=== PATIENT | male | born 1945 | race Asian ===

== ENCOUNTER 2024-08-17 10:06 | Observation (INO) | payer MEDICARE, BC ==
--- NOTE | 2024-08-17 12:04 | ED ---
General Adult HPI - General Chief complaint: Upper Respiratory Infection Stated complaint: CHF Time Seen by Provider: 08/17/24 10:08 Source: patient, EMS Mode of arrival: EMS Limitations: no limitations - History of Present Illness Initial comments: 79-year-old male who presents to the emergency department as a transfer from [facility]. Patient went into the emergency department this morning for hemoptysis. Patient states that he has been intermittently coughing up bright red blood which started yesterday morning. He denies any chest pain or sh ortness of breath. He was tachypneic and has a history of COPD. No recent travel. He had a similar episode where he went to [place] and was admitted for anemia. Patient had upper and lower GI scopes that did not reveal anything. Patient is on Eliquis and has a history of coronary artery disease. Laboratory studies were conducted. Hemoglobin was 10 today. Hemoglobin on the was 11.2. Creatinine 2.7. BNP is 1610. CT was performed of the chest which demonstrates perihilar patchy groundglass opacities which can be seen in the setting of edema, pneumonia and inflammatory process. He was given a TXA breathing treatment. They tried to transfer the patient to [facility] however they were closed to transfers. He lives in [place] and therefore was requesting our facility. Patient arrives and states he has had no further episodes of the hemoptysis. No leg swelling. Denies abdominal pain. Denies vomiting any blood. No changes in his bowel movements. No other alleviating, precipitating or modifying factors - Related Data Allergies Allergy/AdvReac Type Severity Reaction Status Date / Time No Known Allergies Allergy Verified 08/17/24 11:24 Review of Systems ROS Statement: Those systems with pertinent positive or pertinent negative responses have been documented in the HPI. ROS Other: All systems not noted in ROS Statement are negative. Past Medical History Past Medical History: Coronary Artery Disease (CAD), Diabetes Mellitus, Hyperlipidemia, Hypertension Additional Past Medical History / Comment(s): Pacemaker, CHF, COPD History of Any Multi-Drug Resistant Organisms: None Reported Additional Past Surgical History / Comment(s): CABG 1996, Pacemaker placment 2016, Aortic Valve 2020 Past Psychological History: No Psychological Hx Reported Smoking Status: Never smoker Past Alcohol Use History: None Reported Past Drug Use History: None Reported General Exam Limitations: no limitations Course Vital Signs 08/17/24 08/17/24 10:10 10:16 Temperature 97.7 F Pulse Rate 70 Respiratory 18 20 Rate Blood Pressure 153/79 O2 Sat by Pulse 96 Oximetry Disposition Clinical Impression: Hemoptysis Disposition: ADMITTED IP TO THIS HOSP Condition: Stable Is patient prescribed a controlled substance at d/c from ED?: No Referrals: Nonstaff,Physician [Primary Care Provider] - 1-2 days Time of Disposition: 12:41 Decision to Admit Reason: Admit from EC Decision Date: 08/17/24 Decision Time: 12:41
[2024-08-17] MEDS ORDERED: NALOXONE 0.4 MG/ML 1 ML VIAL IV PRN (12:41)
--- NOTE | 2024-08-17 13:11 | P.HPIM ---
History of Present Illness This is a pleasant 79 years old male with past medical history of multiple medical problems as below. Patient was sent from [facility] at the time for hemoptysis. Patient information was obtained with the help of the at bedside. He has been coughing up blood last Wednesday couple times and then earlier this morning so he decided to come to the hospital. 2 weeks ago also he had similar episode of hemoptysis. He denies chest pain or dyspnea. No abdominal pain vomiting or diarrhea. No urinary complaint. No headache dizziness weakness numbness. 2 weeks ago also he started having lower back pain radiating to the left leg which makes him difficult for him to walk because of the pain. He denies smoking alcohol or illicit drugs Patient and states that also he is on Eliquis. They do not know why he was on Eliquis this was started about 1 year ago at that time he was in 6 hospitals. Patient also has peripheral artery disease which might help him for that. Patient is hemodynamically stable and is afebrile No labs done in this hospital so far. Labs checked from [facility] at the thump WBC 4.0, hemoglobin 10, platelet count 154. Glucose 151, BUN 61, creatinine 2.7 Calcium 8.6 sodium 142, potassium 4.3. Chloride 105. Albumin 3.2. AST 14 ALT 17. Bilirubin 0.3. proBNP 1610. CT of the chest done without contrast showing 1. Minimally perihilar patchy groundglass opacity which are nonspecific and can be seen in the setting of edema and pneumonia and inflammatory process 2. Central airway are patent 3. Heart size is enlarged. 4. Status post median sternotomy and CABG 5. The aorta is diffusely atherosclerotic and normal in caliber 6. No pleural effusion or pneumothorax 7. Cholelithiasis 8. Sternotomy wires are intact 9. No acute osseous abnormality Patient was admitted with ardiology and pulmonary team consult Review of Systems Review of systems CONSTITUTIONAL: No fever, no malaise, no fatigue. HEENT: No recent visual problems or hearing problems. Denied any sore throat. CARDIOVASCULAR: No orthopnea, PND, no palpitations, no syncope. PULMONARY: No shortness of breath, no cough, no hemoptysis. GASTROINTESTINAL: No diarrhea, no nausea, no vomiting, no abdominal pain. Normoactive bowel sounds. NEUROLOGICAL: No headaches, no weakness, no numbness. HEMATOLOGICAL: Denies any bleeding or petechiae. GENITOURINARY: Denies any burning micturition, frequency, or urgency. MUSCULOSKELETAL/RHEUMATOLOGICAL: Denies any joint pain, swelling, or any muscle pain. ENDOCRINE: Denies any polyuria or polydipsia. Past Medical History Past Medical History: Coronary Artery Disease (CAD), Diabetes Mellitus, Hype rlipidemia, Hypertension Additional Past Medical History / Comment(s): Pacemaker, CHF, COPD History of Any Multi-Drug Resistant Organisms: None Reported Additional Past Surgical History / Comment(s): CABG 1996, Pacemaker placment 2016, Aortic Valve 2020 Past Psychological History: No Psychological Hx Reported Smoking Status: Never smoker Past Alcohol Use History: None Reported Past Drug Use History: None Reported Medications and Allergies Home Medications Medication Instructions Recorded Confirmed Type Albuterol Sulfate [Albuterol 2 puff INHALATION RT-Q6H PRN 08/17/24 08/17/24 History Sulfate Hfa] Apixaban [Eliquis] 5 mg PO BID 08/17/24 08/17/24 History Ascorbic Acid [Vitamin C] 500 mg PO DAILY 08/17/24 08/17/24 History Atorvastatin [Lipitor] 80 mg PO HS 08/17/24 08/17/24 History Cholecalciferol [Vitamin D3 (25 25 mcg PO DAILY 08/17/24 08/17/24 History Mcg = 1000 Iu)] DULoxetine HCL [Cymbalta] 20 mg PO BID 08/17/24 08/17/24 History Divalproex [Depakote] 250 mg PO BID 08/17/24 08/17/24 History Empagliflozin [Jardiance] 10 mg PO DAILY 08/17/24 08/17/24 History Evolocumab [Repatha Sureclick] 140 mg SQ Q14D 08/17/24 08/17/24 History Fenofibrate [Lofibra] 160 mg PO DAILY 08/17/24 08/17/24 History Fluticasone/Umeclidin/Vilanter 1 puff INHALATION RT-DAILY 08/17/24 08/17/24 History [Trelegy Ellipta 100-62.5-25] Folate 1,333 Mcg Dfe 1 tab PO DAILY 08/17/24 08/17/24 History Furosemide [Lasix] 20 mg PO DAILY PRN 08/17/24 08/17/24 History Furosemide [Lasix] 80 mg PO DAILY 08/17/24 08/17/24 History Gabapentin [Neurontin] 300 mg PO BID 08/17/24 08/17/24 History HYDROcodone/APAP 7.5-325MG [[place] 1 tab PO BID PRN 08/17/24 08/17/24 History 7.5-325] HYDROcodone/APAP 7.5-325MG [[place] 1 tab PO HS 08/17/24 08/17/24 History 7.5-325] Insulin Glargine,Hum.rec.anlog 40 unit SQ DAILY 08/17/24 08/17/24 History [Basaglar Kwikpen U-100] Isosorbide Mononitrate ER [Imdur] 30 mg PO TID 08/17/24 08/17/24 History Potassium Chloride ER [K-Dur 20] 20 meq PO DAILY 08/17/24 08/17/24 History QUEtiapine [SEROquel] 25 mg PO HS 08/17/24 08/17/24 History Sennosides [Senokot] 8.6 mg PO DAILY 08/17/24 08/17/24 History Spironolactone [Aldactone] 12.5 mg PO DAILY 08/17/24 08/17/24 History Tamsulosin [Flomax] 0.8 mg PO HS 08/17/24 08/17/24 History Vitamin B Complex 1 cap PO DAILY 08/17/24 08/17/24 History Zinc Gluconate [Zinc] 50 mg PO DAILY 08/17/24 08/17/24 History Zolpidem [Ambien] 10 mg PO HS 08/17/24 08/17/24 History amLODIPine [Norvasc] 10 mg PO HS 08/17/24 08/17/24 History buPROPion XL [Wellbutrin XL] 300 mg PO DAILY 08/17/24 08/17/24 History carvediloL [Coreg] 25 mg PO BID 08/17/24 08/17/24 History hydrALAZINE HCL [Apresoline] 100 mg PO TID 08/17/24 08/17/24 History methocarbamoL [Robaxin] 500 mg PO BID 08/17/24 08/17/24 History Allergies Allergy/AdvReac Type Severity Reaction Status Date / Time No Known Allergies Allergy Verified 08/17/24 11:24 Physical Exam Vitals: Vital Signs Temp Pulse Resp BP Pulse Ox 08/17/24 12:51 69 18 145/76 96 08/17/24 11:16 70 20 125/76 96 08/17/24 10:16 20 08/17/24 10:10 97.7 F 70 18 153/79 96 Intake and Output 08/16/24 08/17/24 08/17/24 22:59 06:59 14:59 Other: Weight 90.718 kg GENERAL: The patient is alert and oriented x3, not in any acute distress. Well developed, well nourished. HEENT: Pupils are round and equally reacting to light. EOMI. No scleral icterus. No conjunctival pallor. Normocephalic, atraumatic. No pharyngeal erythema. No thyromegaly. CARDIOVASCULAR: S1 and S2 present. No murmurs, rubs, or gallops. PULMONARY: Chest is clear to auscultation, no wheezing , no crackles. ABDOMEN: Soft, nontender, nondistended, normoactive bowel sounds. No palpable organomegaly. MUSCULOSKELETAL: No joint swelling or deformity. EXTREMITIES: No cyanosis, clubbing, or pedal edema. NEUROLOGICAL: Gross neurological examination did not reveal any focal deficits. SKIN: No rashes. no petechiae. Assessment and Plan Assessment: Hemoptysis Acute blood loss anemia Lower back pain radiating to the left leg Hypertension Hyperlipidemia Coronary artery disease Obesity with BMI of 33. Peripheral artery disease Kidney stone Plan: Check hemoglobin and monitored Pulmonary team consult Hold Eliquis Lumbar sacral x-ray Lidocaine patch Labs and medication were reviewed.. Continue same treatment. Continue with symptomatic treatment. Resume home medication. Monitor labs and vitals. DVT and GI prophylaxis. Further recommendations as per clinical course of the patient DVT prophylaxis: Mechanical in view of bleeding and hemoptysis GI Prophylaxis: Pepcid PT/OT: Pending Prognosis is guarded
--- NOTE | 2024-08-17 13:37 | XR ---
EXAMINATION TYPE: XR lumbar spine 2 or 3V DATE OF EXAM: 08/17/2024 CLINICAL HISTORY: pain TECHNIQUE: Three views of the lumbar spine are submitted. COMPARISON: None. FINDINGS: There are 5 lumbar type vertebral bodies identified. The lumbar spine shows satisfactory alignment w ithout evidence of acute fracture or dislocation. Vertebral body heights are within normal limits. Mi nimal multilevel anterolateral pneumatosis. Disc spaces are within normal limits. The overlying sof t tissue appears unremarkable. Severe atherosclerotic calcification of the aorta. IMPRESSION: 1. No acute fracture or dislocation is seen in the lumbar spine. 2. Minimal degenerative disc disease. [facility], , 08/17/2024 1:35 PM
[2024-08-17] MEDS ORDERED: IPRATROPIUM-ALBUTEROL 3 ML NEB INHALATION PRN (15:01)
[2024-08-17 15:38] LABS: Basophils % (A) 0 %; Eosinophils # (A) 0.2 k/uL (0-0.7); Eosinophils % (A) 5 %; HCT 35.3 % (39.0-53.0); HGB 11.3 gm/dL (13.0-17.5); Hypochromasia Moderate; Lymphocytes # (A) 0.8 k/uL (1.0-4.8); Lymphocytes % (A) 15 %; MCH 28.8 pg (25.0-35.0); MCV 89.8 fL (80.0-100.0); Mean Platelet Volume 8.6; Monocytes # (A) 0.3 k/uL (0-1.0); Monocytes % (A) 7 %; Neutrophils # (A) 3.6 k/uL (1.3-7.7); Neutrophils % (A) 71 %; Platelet Count 176 k/uL (150-450); RBC 3.93 m/uL (4.30-5.90); RDW 15.7 % (11.5-15.5)
[2024-08-17] MEDS: IPRATROPIUM-ALBUTEROL 3 ML NEB INHALATION SCH (16:03)
--- NOTE | 2024-08-17 16:23 | P.CNPUL ---
History of Present Illness Consult date: 08/17/24 Requesting physician: Mary Villalobos Reason for consult: other (Hemoptysis) Chief complaint: Coughing up blood History of present illness: This is a 79-year-old male patient with a known history of coronary artery disease with previous coronary artery bypass grafting, sick sinus syndrome status post pacemaker implantation, atrial fibrillation anticoagulated with Eliquis, diabetes mellitus, hyperlipidemia, hypertension, aortic valve replacement, non-smoker. He does have a history of COPD. He is a former smoker. He is maintained on Trelegy and albuterol in the outpatient setting. He also has obstructive sleep apnea maintained on CPAP. He presented here to the emergency room early this morning from [facility] for complaints of hemoptysis. He states 2 days ago he had coughed up some blood about a dime sized amount possibly the size of a nickel he had 1 dark clot and also some brig ht red blood. CT scan of the chest there revealed minimal perihilar groundglass opacities. He further hemoptysis since being here today. He is seen today in consultation on the regular medical floor. He is awake and alert in no acute distress. His Eliquis remains on hold. He is maintaining good O2 saturations in the 90s on room air. He is been afebrile. Hemodynamically stable. White count 5.0. Hemoglobin 11.3. Platelets 176. Review of Systems REVIEW OF SYSTEMS: CONSTITUTIONAL: Denies any recent significant weight loss or weight gain. EYES: Denies change in vision. EARS, NOSE, MOUTH, THROAT: Denies headaches, denies sore throat. CARDIOVASCULAR: Denies chest pain, palpitations or syncopal episodes. RESPIRATORY: Positive for hemoptysis. Denies shortness of breath, cough, congestion. GASTROINTESTINAL: Denies change in appetite, denies abdominal pain GENITOURINARY: Denies hematuria, denies infections. MUSKULOSKELETAL: Denies pain, denies swelling. INTEGUMENTARY: Denies rash, denies eczema. NEUROLOGICAL: Denies recent memory loss, no recent seizure activity. PSYCHIATRIC: Denies anxiety, denies depression. HEMATOLOGIC/LYMPHATIC: Denies anemia, denies enlarged lymph nodes. Past Medical History Past Medical History: Coronary Artery Disease (CAD), Diabetes Mellitus, Hyperlipidemia, Hypertension Additional Past Medical History / Comment(s): Pacemaker, CHF, COPD History of Any Multi-Drug Resistant Organisms: None Reported Additional Past Surgical History / Comment(s): CABG 1996, Pacemaker placment 2016, Aortic Valve 2020 Past Psychological History: No Psychological Hx Reported Smoking Status: Never smoker Past Alcohol Use History: None Reported Past Drug Use History: None Reported Medications and Allergies Home Medications Medication Instructions Recorded Confirmed Type Albuterol Sulfate [Albuterol 2 puff INHALATION RT-Q6H PRN 08/17/24 08/17/24 History Sulfate Hfa] Apixaban [Eliquis] 5 mg PO BID 08/17/24 08/17/24 History Ascorbic Acid [Vitamin C] 500 mg PO DAILY 08/17/24 08/17/24 History Atorvastatin [Lipitor] 80 mg PO HS 08/17/24 08/17/24 History Cholecalciferol [Vitamin D3 (25 25 mcg PO DAILY 08/17/24 08/17/24 History Mcg = 1000 Iu)] DULoxetine HCL [Cymbalta] 20 mg PO BID 08/17/24 08/17/24 History Divalproex [Depakote] 250 mg PO BID 08/17/24 08/17/24 History Empagliflozin [Jardiance] 10 mg PO DAILY 08/17/24 08/17/24 History Evolocumab [Repatha Sureclick] 140 mg SQ Q14D 08/17/24 08/17/24 History Fenofibrate [Lofibra] 160 mg PO DAILY 08/17/24 08/17/24 History Fluticasone/Umeclidin/Vilanter 1 puff INHALATION RT-DAILY 08/17/24 08/17/24 History [Trelegy Ellipta 100-62.5-25] Folate 1,333 Mcg Dfe 1 tab PO DAILY 08/17/24 08/17/24 History Furosemide [Lasix] 20 mg PO DAILY PRN 08/17/24 08/17/24 History Furosemide [Lasix] 80 mg PO DAILY 08/17/24 08/17/24 History Gabapentin [Neurontin] 300 mg PO BID 08/17/24 08/17/24 History HYDROcodone/APAP 7.5-325MG [[place] 1 tab PO BID PRN 08/17/24 08/17/24 History 7.5-325] HYDROcodone/APAP 7.5-325MG [[place] 1 tab PO HS 08/17/24 08/17/24 History 7.5-325] Insulin Glargine,Hum.rec.anlog 40 unit SQ DAILY 08/17/24 08/17/24 History [Basaglhilary Samuelspen U-100] Isosorbide Mononitrate ER [Imdur] 30 mg PO TID 08/17/24 08/17/24 History Potassium Chloride ER [K-Dur 20] 20 meq PO DAILY 08/17/24 08/17/24 History QUEtiapine [SEROquel] 25 mg PO HS 08/17/24 08/17/24 History Sennosides [Senokot] 8.6 mg PO DAILY 08/17/24 08/17/24 History Spironolactone [Aldactone] 12.5 mg PO DAILY 08/17/24 08/17/24 History Tamsulosin [Flomax] 0.8 mg PO HS 08/17/24 08/17/24 History Vitamin B Complex 1 cap PO DAILY 08/17/24 08/17/24 History Zinc Gluconate [Zinc] 50 mg PO DAILY 08/17/24 08/17/24 History Zolpidem [Ambien] 10 mg PO HS 08/17/24 08/17/24 History amLODIPine [Norvasc] 10 mg PO HS 08/17/24 08/17/24 History buPROPion XL [Wellbutrin XL] 300 mg PO DAILY 08/17/24 08/17/24 History carvediloL [Coreg] 25 mg PO BID 08/17/24 08/17/24 History hydrALAZINE HCL [Apresoline] 100 mg PO TID 08/17/24 08/17/24 History methocarbamoL [Robaxin] 500 mg PO BID 08/17/24 08/17/24 History Allergies Allergy/AdvReac Type Severity Reaction Status Date / Time No Known Allergies Allergy Verified 08/17/24 11:24 Physical Exam Vitals: Vital Signs Temp Pulse Pulse Resp BP BP Pulse Ox 08/17/24 16:02 68 08/17/24 15:56 70 08/17/24 14:58 97.8 F 70 16 183/84 99 08/17/24 14:31 97.9 F 70 17 171/73 96 08/17/24 12:51 69 18 145/76 96 08/17/24 11:16 70 20 125/76 96 08/17/24 10:16 20 08/17/24 10:10 97.7 F 70 18 153/79 96 Intake and Output 08/17/24 08/17/24 08/17/24 06:59 14:59 22:59 Other: Weight 90.718 kg GENERAL EXAM: Alert, active, pleasant 79-year-old male, on room air, comfortable in no apparent distress. HEAD: Normocephalic. EYES: Normal reaction of pupils, equal size. NOSE: Clear with pink turbinates. THROAT: No erythema or exudates. NECK: No masses, no JVD. CHEST: No chest wall deformity. LUNGS: Equal air entry with no crackles, wheeze, rhonchi or dullness. CVS: S1 and S2 normal with no audible murmur, regular rhythm. ABDOMEN: No hepatosplenomegaly, normal bowel sounds, no guarding or rigidity. SPINE: No scoliosis or deformity SKIN: No rashes CENTRAL NERVOUS SYSTEM: No focal deficits, tone is normal in all 4 extremities. EXTREMITIES: There is no peripheral edema. No clubbing, no cyanosis. Peripheral pulses are intact. Results - Laboratory Findings CBC and BMP: 08/17/24 15:26 Abnormal lab findings: Abnormal Labs 08/17/24 15:26 RBC 3.93 L Hgb 11.3 L Hct 35.3 L RDW 15.7 H Lymphocytes # 0.8 L - Diagnostic Findings CT scan - chest: image reviewed Assessment and Plan Assessment: Hemoptysis of unclear etiology History of chronic obstructive pulmonary disease Former smoker Obstructive sleep apnea maintained on CPAP History of atrial fibrillation anticoagulated with Eliquis Coronary disease with previous coronary bypass surgery History of pacemaker implantation History of congestive heart failure History of hypertension Hyperlipidemia History of anxiety/depression History of seizures Plan: The patient was seen and evaluated Imaging, labs and medications reviewed Remains stable and on room air No further hemoptysis today Will plan for bronchoscopy with BAL tomorrow Initiated DuoNeb inhalations Added Symbicort Continue to hold Eliquis We will continue to follow and make further recommendations based on his clinical status I have personally seen and examined the patient, performed the documentation and the assessment and plan as written. Number of minutes spent on the visit: 20 Dictation was produced using Mashed Pixelation software. Please excuse any grammatical, word or spelling errors. Time with Patient: Greater than 30
[2024-08-17 17:06] LABS: Glucose,Whole Blood 164 mg/dL (70-110)
[2024-08-17] MEDS: LIDOCAINE 4% PATCH TOPICAL SCH (17:43)
[2024-08-17] MEDS: SYMBICORT 160-4.5 MCG INHALER INHALATION SCH (20:16)
[2024-08-17 20:20] LABS: Glucose,Whole Blood 208 mg/dL (70-110)
[2024-08-17] MEDS ORDERED: ALBUTEROL NEBULIZED 2.5 MG/3 ML INHALATION PRN (20:55)
[2024-08-17] MEDS ORDERED: FUROSEMIDE 20 MG TAB PO PRN (22:00)
[2024-08-17] MEDS: GABAPENTIN 300 MG CAP PO SCH (23:06)
[2024-08-17] MEDS: hydrALAZINE HCL 50 MG TAB PO SCH (23:06)
[2024-08-17] MEDS: amLODIPine 10 MG TAB PO SCH (23:06)
[2024-08-17] MEDS: ZOLPIDEM 5 MG TAB PO SCH (23:06)
[2024-08-17] MEDS: TAMSULOSIN 0.4 MG CAP.ER.24H PO SCH (23:06)
[2024-08-17] MEDS: ATORVASTATIN 80 MG TAB PO SCH (23:06)
[2024-08-17] MEDS: QUEtiapine 25 MG TAB PO SCH (23:06)
[2024-08-17] MEDS: methocarbamoL 500 MG TAB PO SCH (23:06)
[2024-08-17] MEDS: FAMOTIDINE 20 MG/2 ML VIAL IV SCH (23:08)
[2024-08-17] MEDS: HYDROcodone/APAP 7.5-325MG 1 EACH TAB PO PRN (23:09)
[2024-08-17] MEDS: DIVALPROEX 250 MG TABLET.DR PO SCH (23:10)
[2024-08-17] MEDS: ISOSORBIDE MONONITRATE ER 30 MG TAB.ER.24H PO SCH (23:10)
[2024-08-17] MEDS: DULoxetine HCL 20 MG CAPSULE.DR PO SCH (23:10)
[2024-08-17] MEDS: carvediloL 12.5 MG TAB PO SCH (23:10)
[2024-08-17 23:46] LABS: Glucose,Whole Blood 196 mg/dL (70-110)
[2024-08-18 06:10] LABS: Glucose,Whole Blood 120 mg/dL (70-110)
[2024-08-18] MEDS ORDERED: SYMBICORT 160-4.5 MCG INHALER INHALATION SCH (08:00)
[2024-08-18 08:15] LABS: Basophils # (A) 0.04 X 10*3/uL (0.00-0.10); Basophils % (A) 1.1 %; Eosinophils # (A) 0.22 X 10*3/uL (0.04-0.35); Eosinophils % (A) 5.8 %; HCT 34.4 % (39.6-50.0); HGB 10.8 g/dL (13.0-17.0); Lymphocytes % (A) 18.5 %; MCH 28.3 pg (27.0-32.0); MCHC 31.4 g/dL (32.0-37.0); MCV 90.3 FL (80.0-97.0); Mean Platelet Volume 10.2 FL (9.5-12.2); Monocytes # (A) 0.44 X 10*3/uL (0.20-1.00); Monocytes % (A) 11.6 %; NRBC Per 100 WBC 0 X 10*3/uL (0.00-0.01); Neutrophils # (A) 2.36 X 10*3/uL (1.80-7.70); Neutrophils % (A) 62.5 %; Platelet Count 169 X 10*3/uL (140-440); RBC 3.81 X 10*6/uL (4.40-5.60); RDW 16.2 % (11.5-14.5); WBC 3.78 X 10*3/uL (4.50-10.00)
[2024-08-18 08:19] LABS: ALT 13 U/L (10-49); AST 17 U/L (14-35); Albumin 3.8 g/dL (3.8-4.9); Albumin/Globulin Ratio 1.41 Ratio (1.60-3.17); Alkaline Phosphatase 25 U/L (41-126); BUN/Creat Ratio 24.21 Ratio (12.00-20.00); Blood Urea Nitrogen 58.1 mg/dL (9.0-27.0); Calcium 9.2 mg/dL (8.7-10.3); Carbon Dioxide 27.3 mmol/L (21.6-31.8); Chloride 105 mmol/L (96-109); Globulin 2.7 g/dL (1.6-3.3); Glucose 129 mg/dL (70-110); Potassium 3.8 mmol/L (3.5-5.5); Sodium 143 mmol/L (135-145); Total Bilirubin 0.3 mg/dL (0.3-1.2); Total Protein 6.5 g/dL (6.2-8.2)
[2024-08-18] MEDS ORDERED: PROPOFOL 10 MG/ML 20 ML VIAL IV ONE (09:09)
[2024-08-18] MEDS ORDERED: LIDOCAINE 1% INJ 10MG/ML (20 ML MDV) ONE (09:09)
[2024-08-18] MEDS: LACTATED RINGERS 500 ML IV ONE ×2 (09:10→09:29)
[2024-08-18] MEDS: LIDOCAINE 2% INJ 20 MG/ML INTRATRACH ONE (09:27)
--- NOTE | 2024-08-18 09:54 | P.CRDCN ---
History of Present Illness History of present illness: HISTORY OF PRESENT ILLNESS: This is a 79-year-old male with a past medical history significant for coronary artery disease with previous CABG x 2, permanent pacemaker implantation, atrial fibrillation, diabetes, hypertension, and hyperlipidemia. Patient follows with a sign writer letterer or painter in [place]. We have been asked to see the patient in consultation for CHF. Patient examined at the bedside. Patient presented to the hospital with a chief complaint of hemoptysis. The patient is prescribed Eliquis on an outpatient basis for history of atrial fibrillation. The patient denies any chest pain or pressure. He denies any shortness of breath. Patient is scheduled to undergo bronchoscopy today with pulmonary medicine. DIAGNOSTICS: - EKG reveals ventricular paced rhythm. - Laboratory data: WBC 3.78. Hemoglobin 10.8. Platelet count 169. Sodium 143. Potassium 3.8. BUN 58. Creatinine 2.4. - Current home cardiac medications include Lasix 80 mg daily, carvedilol 25 mg twice a day, Imdur 30 mg 3 times daily, amlodipine 10 mg daily, Aldactone 12.5 mg daily, Jardiance 10 mg daily, Lipitor 80 mg daily, Eliquis 5 mg twice a day, hydralazine 100 mg 3 times daily, and Repatha 140 mg subcu every 14 days. -No previous echocardiogram, stress test, or cardiac catheterization available in EMR for review REVIEW OF SYSTEMS: At the time of my exam: CONSTITUTIONAL: Denies fever or chills. HEENT: Denies blurred vision, vision changes, or eye pain. Denies hemoptysis CARDIOVASCULAR: Denies chest pain. Denies orthopnea. Denies PND. Denies palpitations RESPIRATORY: Denies shortness of breath. GASTROINTESTINAL: Denies abdominal pain. Denies nausea or vomiting. HEMATOLOGIC: Denies bleeding disorders. GENITOURINARY: Denies any blood in urine. SKIN: Denies pruitis. Denies rash. PHYSICAL EXAM: VITAL SIGNS: Reviewed. GENERAL: Well-developed in no acute distress. HEENT: Head is normocephalic. Pupils are equal, round. Sclerae anicteric. Mucous membranes of the mouth are moist. Neck supple. No JVD or thyromegaly LUNGS: Respirations even and unlabored. Lungs essentially clear to auscultation bilaterally. HEART: Regular rate and rhythm. S1 and S2 heard. ABDOMEN: Soft. Nondistended. Nontender. EXTREMITIES: Normal range of motion. No clubbing or cyanosis. Peripheral pulses intact. No lower extremity edema NEUROLOGIC: Awake and alert. Oriented x 3. ASSESSMENT: Hemoptysis Coronary artery disease with previous CABG x 2 per History of permanent pacemaker implantation Paroxysmal atrial fibrillation on Eliquis outpatient Chronic heart failure, currently euvolemic, type unknown, echo pending Chronic kidney disease Hypertension Hyperlipidemia Diabetes PLAN: Obtain 2D echo to assess cardiac structure and function Resume home cardiac medications Hold Eliquis due to hemoptysis Patient is currently euvolemic upon examination with no evidence of acute heart failure Patient scheduled to undergo bronchoscopy today with pulmonary medicine Further recommendations pending patient course Patient to follow-up postdischarge with his primary sign writer letterer or painter in [place] Nurse practitioner note has been reviewed by physician. Signing provider agrees with the documented findings, assessment, and plan of care documented by [employer] as a scribe. Past Medical History Past Medical History: Coronary Artery Disease (CAD), Diabetes Mellitus, Hyperlipidemia, Hypertension Additional Past Medical History / Comment(s): Pacemaker, CHF, COPD History of Any Multi-Drug Resistant Organisms: None Reported Additional Past Surgical History / Comment(s): CABG 1996, Pacemaker placment 2016, Aortic Valve 2020 Past Psychological History: No Psychological Hx Reported Smoking Status: Never smoker Past Alcohol Use History: None Reported Past Drug Use History: None Reported Medications and Allergies Home Medications Medication Instructions Recorded Confirmed Type Albuterol Sulfate [Albuterol 2 puff INHALATION RT-Q6H PRN 08/17/24 08/17/24 History Sulfate Hfa] Apixaban [Eliquis] 5 mg PO BID 08/17/24 08/17/24 History Ascorbic Acid [Vitamin C] 500 mg PO DAILY 08/17/24 08/17/24 History Atorvastatin [Lipitor] 80 mg PO HS 08/17/24 08/17/24 History Cholecalciferol [Vitamin D3 (25 25 mcg PO DAILY 08/17/24 08/17/24 History Mcg = 1000 Iu)] DULoxetine HCL [Cymbalta] 20 mg PO BID 08/17/24 08/17/24 History Divalproex [Depakote] 250 mg PO BID 08/17/24 08/17/24 History Empagliflozin [Jardiance] 10 mg PO DAILY 08/17/24 08/17/24 History Evolocumab [Repatha Sureclick] 140 mg SQ Q14D 08/17/24 08/17/24 History Fenofibrate [Lofibra] 160 mg PO DAILY 08/17/24 08/17/24 History Fluticasone/Umeclidin/Vilanter 1 puff INHALATION RT-DAILY 08/17/24 08/17/24 History [Trelegy Ellipta 100-62.5-25] Folate 1,333 Mcg Dfe 1 tab PO DAILY 08/17/24 08/17/24 History Furosemide [Lasix] 20 mg PO DAILY PRN 08/17/24 08/17/24 History Furosemide [Lasix] 80 mg PO DAILY 08/17/24 08/17/24 History Gabapentin [Neurontin] 300 mg PO BID 08/17/24 08/17/24 History HYDROcodone/APAP 7.5-325MG [Purdum 1 tab PO BID PRN 08/17/24 08/17/24 History 7.5-325] HYDROcodone/APAP 7.5-325MG [Purdum 1 tab PO HS 08/17/24 08/17/24 History 7.5-325] Insulin Glargine,Hum.rec.anlog 40 unit SQ DAILY 08/17/24 08/17/24 History [Basaglar Kwikpen U-100] Isosorbide Mononitrate ER [Imdur] 30 mg PO TID 08/17/24 08/17/24 History Potassium Chloride ER [K-Dur 20] 20 meq PO DAILY 08/17/24 08/17/24 History QUEtiapine [SEROquel] 25 mg PO HS 08/17/24 08/17/24 History Sennosides [Senokot] 8.6 mg PO DAILY 08/17/24 08/17/24 History Spironolactone [Aldactone] 12.5 mg PO DAILY 08/17/24 08/17/24 History Tamsulosin [Flomax] 0.8 mg PO HS 08/17/24 08/17/24 History Vitamin B Complex 1 cap PO DAILY 08/17/24 08/17/24 History Zinc Gluconate [Zinc] 50 mg PO DAILY 08/17/24 08/17/24 History Zolpidem [Ambien] 10 mg PO HS 08/17/24 08/17/24 History amLODIPine [Norvasc] 10 mg PO HS 08/17/24 08/17/24 History buPROPion XL [Wellbutrin XL] 300 mg PO DAILY 08/17/24 08/17/24 History carvediloL [Coreg] 25 mg PO BID 08/17/24 08/17/24 History hydrALAZINE HCL [Apresoline] 100 mg PO TID 08/17/24 08/17/24 History methocarbamoL [Robaxin] 500 mg PO BID 08/17/24 08/17/24 History Allergies Allergy/AdvReac Type Severity Reaction Status Date / Time No Known Allergies Allergy Verified 08/17/24 11:24 Physical Exam Vitals: Vital Signs Temp Pulse Pulse Resp BP BP Pulse Ox 08/18/24 08:06 70 08/18/24 07:58 64 08/18/24 07:00 98.7 F 70 16 171/81 96 08/18/24 01:40 98.1 F 70 17 176/71 95 08/17/24 20:27 72 08/17/24 20:17 70 08/17/24 19:20 99.0 F 74 17 162/51 99 08/17/24 16:02 68 08/17/24 15:56 70 08/17/24 14:58 97.8 F 70 16 183/84 99 08/17/24 14:31 97.9 F 70 17 171/73 96 08/17/24 12:51 69 18 145/76 96 08/17/24 11:16 70 20 125/76 96 08/17/24 10:16 20 08/17/24 10:10 97.7 F 70 18 153/79 96 Intake and Output 08/17/24 08/18/24 08/18/24 22:59 06:59 14:59 Intake Total 300 Balance 300 Intake: IV 300 Other: # Voids 1 2 Results 08/18/24 05:23 08/18/24 05:23 Cardiac Enzymes 08/18/24 Range/Units 05:23 AST 17 (14-35) U/L CBC 08/17/24 08/18/24 Range/Units 15:26 05:23 WBC 5.0 3.78 L (3.8-10.6) k/uL RBC 3.93 L 3.81 L (4.30-5.90) m/uL Hgb 11.3 L 10.8 L (13.0-17.5) gm/dL Hct 35.3 L 34.4 L (39.0-53.0) % Plt Count 176 169 (150-450) k/uL Comprehensive Metabolic Panel 08/18/24 Range/Units 05:23 Sodium 143 (135-145) mmol/L Potassium 3.8 (3.5-5.5) mmol/L Chloride 105 (96-109) mmol/L Carbon Dioxide 27.3 (21.6-31.8) mmol/L BUN 58.1 H (9.0-27.0) mg/dL Creatinine 2.4 H (0.6-1.5) mg/dL Glucose 129 H (70-110) mg/dL Calcium 9.2 (8.7-10.3) mg/dL AST 17 (14-35) U/L ALT 13 (10-49) U/L Alkaline Phosphatase 25 L (41-126) U/L Total Protein 6.5 (6.2-8.2) g/dL Albumin 3.8 (3.8-4.9) g/dL Current Medications Generic Name Dose Route Start Last Admin Trade Name Freq PRN Reason Stop Dose Admin Hydrocodone Bitart/Acetaminophen 1 each 08/17/24 20:56 Hydrocodone/Apap 7.5-325mg 1 Each Tab PO BID PRN Pain Hydrocodone Bitart/Acetaminophen 1 each 08/17/24 22:15 08/17/24 23:09 Hydrocodone/Apap 7.5-325mg 1 Each Tab PO 1 each HS PRN Administration pain Albuterol Sulfate 2 mg 08/17/24 20:55 Albuterol Nebulized 2.5 Mg/3 Ml INHALATION RT-Q6H PRN Shortness Of Breath Albuterol/Ipratropium 3 ml 08/17/24 16:00 08/18/24 07:58 Ipratropium-Albuterol 3 Ml Neb INHALATION 3 ml RT-QID NIGEL Administration Albuterol/Ipratropium 3 ml 08/17/24 15:01 Ipratropium-Albuterol 3 Ml Neb INHALATION RT-Q2H PRN Shortness Of Breath Or Wheezing Amlodipine Besylate 10 mg 08/17/24 21:30 08/17/24 23:06 Amlodipine 10 Mg Tab PO 10 mg HS NIGEL Administration Amoxicillin/Clavulanate Potassium 1 each 08/18/24 09:30 Amoxic-Pot Clav 875-125mg 1 Each Tab PO 08/24/24 21:01 Q12HR [facility] Protocol Ascorbic Acid 500 mg 08/18/24 09:00 Ascorbic Acid 500 Mg Tab PO DAILY [facility] Atorvastatin Calcium 80 mg 08/17/24 21:30 08/17/24 23:06 Atorvastatin 80 Mg Tab PO 80 mg HS [facility] Administration Budesonide/Formoterol Fumarate 2 puff 08/17/24 20:00 08/18/24 07:58 Symbicort 160-4.5 Mcg Inhaler INHALATION 2 puff RT-BID [facility] Administration Bupropion HCl 300 mg 08/18/24 09:00 Bupropion Xl 300 Mg Tab.Er.24h PO DAILY [facility] Carvedilol 25 mg 08/17/24 22:00 08/17/24 23:10 Carvedilol 12.5 Mg Tab PO Not Given BID-W/MEALS [facility] Cholecalciferol 25 mcg 08/18/24 09:00 Cholecalciferol 25 Mcg (1000 Iu) Tablet PO DAILY [facility] Dapagliflozin 5 mg 08/18/24 09:00 Dapagliflozin Propanediol 5 Mg Tablet PO DAILY [facility] Divalproex Sodium 250 mg 08/17/24 21:30 08/17/24 23:10 Divalproex 250 Mg Tablet.Dr PO Not Given BID [facility] Duloxetine HCl 20 mg 08/17/24 21:00 08/17/24 23:10 Duloxetine Hcl 20 Mg Capsule.Dr PO Not Given BID [facility] Famotidine 20 mg 08/17/24 22:00 08/17/24 23:08 Famotidine 20 Mg/2 Ml Vial IV 20 mg Q12HR [facility] Administration Fenofibrate 160 mg 08/18/24 09:00 Fenofibrate 160 Mg Tab PO DAILY [facility] Folic Acid 1 mg 08/18/24 09:00 Folic Acid 1 Mg Tab PO DAILY [facility] Furosemide 80 mg 08/18/24 09:00 Furosemide 40 Mg Tab PO DAILY [facility] Furosemide 20 mg 08/17/24 22:00 Furosemide 20 Mg Tab PO DAILY PRN Edema Gabapentin 300 mg 08/17/24 21:30 08/17/24 23:06 Gabapentin 300 Mg Cap PO 300 mg BID [facility] Administration Hydralazine HCl 100 mg 08/17/24 22:00 08/17/24 23:06 Hydralazine Hcl 50 Mg Tab PO 100 mg TID [facility] Administration Insulin Glargine 40 unit 08/18/24 09:00 Insulin Glargine (Lantus) 100 Unit/Ml Syr SQ DAILY [facility] Isosorbide Mononitrate 30 mg 08/17/24 22:00 08/17/24 23:10 Isosorbide Mononitrate Er 30 Mg Tab.Er.24h PO Not Given TID [facility] Lidocaine 1 patch 08/17/24 13:30 08/17/24 17:43 Lidocaine 4% Patch TOPICAL 1 patch DAILY [facility] Administration Protocol Methocarbamol 500 mg 08/17/24 22:00 08/17/24 23:06 Methocarbamol 500 Mg Tab PO 500 mg BID [facility] Administration Multivit/Ca Carb/B Cmplx/FA/Prenat 1 each 08/18/24 09:00 Folic Acid-Vit B Complex-Vit C 1 Cap PO DAILY [facility] Naloxone HCl 0.2 mg 08/17/24 12:41 Naloxone 0.4 Mg/Ml 1 Ml Vial IV Q2M PRN Opioid Reversal Non-Formulary Medication 140 mg 08/24/24 09:00 Evolocumab [Repatha Sureclick] SQ Q14D [facility] Potassium Chloride 20 meq 08/18/24 09:00 Potassium Chloride Er 20 Meq Tab.Er PO DAILY [facility] Prednisone 40 mg 08/18/24 09:36 Prednisone 20 Mg Tab PO DAILY [facility] Quetiapine Fumarate 25 mg 08/17/24 22:00 08/17/24 23:06 Quetiapine 25 Mg Tab PO 25 mg HS [facility] Administration Senna 8.6 mg 08/18/24 09:00 Sennosides 8.6 Mg Tab PO DAILY [facility] Spironolactone 12.5 mg 08/18/24 09:00 Spironolactone 25 Mg Tab PO DAILY [facility] Tamsulosin HCl 0.8 mg 08/17/24 22:00 08/17/24 23:06 Tamsulosin 0.4 Mg Cap.Er.24h PO 0.8 mg HS [facility] Administration Zinc Sulfate 220 mg 08/18/24 09:00 Zinc Sulfate 220 Mg Cap PO DAILY [facility] Zolpidem Tartrate 10 mg 08/17/24 22:30 08/17/24 23:06 Zolpidem 5 Mg Tab PO 10 mg HS [facility] Administration Intake and Output 0308/18/24 08/18/24 22:59 06:59 14:59 Intake Total 300 Balance 300 Intake: IV 300 Other: # Voids 1 2 08/18/24 05:23 08/18/24 05:23
[2024-08-18] MEDS: buPROPion XL 300 MG TAB.ER.24H PO SCH (10:48)
[2024-08-18] MEDS: FUROSEMIDE 40 MG TAB PO SCH (10:49)
[2024-08-18] MEDS: SPIRONOLACTONE 25 MG TAB PO SCH (10:50)
--- NOTE | 2024-08-18 11:18 | P.PN ---
Subjective Progress Note Date: 08/18/24 This is a 79-year-old male patient with a known history of coronary artery disease with previous coronary artery bypass grafting, sick sinus syndrome status post pacemaker implantation, atrial fibrillation anticoagulated with Eliquis, diabetes mellitus, hyperlipidemia, hypertension, aortic valve replaceme nt, non-smoker. He does have a history of COPD. He is a former smoker. He is maintained on Trelegy and albuterol in the outpatient setting. He also has obstructive sleep apnea maintained on CPAP. He presented here to the emergency room early this morning from [facility] for complaints of hemoptysis. He states 2 days ago he had coughed up some blood about a dime sized amount possibly the size of a nickel he had 1 dark clot and also some bright red blood. CT scan of the chest there revealed minimal perihilar groundglass opacities. He further hemoptysis since being here today. He is seen today in consultation on the regular medical floor. He is awake and alert in no acute distress. His Eliquis remains on hold. He is maintaining good O2 saturations in the 90s on room air. He is been afebrile. Hemodynamically stable. White count 5.0. Hemoglobin 11.3. Platelets 176. The patient is seen today August 18, 2024 in follow-up on the regular medical floor. He is awake and alert in no acute distress. Denies any further hemoptysis the past 24 hours. He is maintaining good O2 saturations in the 90s on room air. He has been afebrile. Hemodynamically stable. White count 3.7. Hemoglobin 10.8. Platelets 169. Sodium 143. Potassium 3.8. Bicarb 27. BUN 58. Creatinine 2.4. Glucose 129. He remains on DuoNeb inhalations, Symbicort. Remains on oral diuretics. Plan is for bronchoscopy with BAL today. Objective - Vital Signs Vital signs: Vital Signs Temp 98.7 F 08/18/24 07:00 Pulse 70 08/18/24 08:06 Resp 16 08/18/24 07:00 BP 171/81 08/18/24 07:00 Pulse Ox 96 08/18/24 07:00 FiO2 Intake & Output 08/17/24 08/18/24 08/18/24 18:59 06:59 18:59 Intake Total 300 Balance 300 Weight 90.718 kg Intake: IV 300 Other: # Voids 2 - Exam GENERAL EXAM: Alert, 79-year-old male, on room air, comfortable in no apparent distress. HEAD: Normocephalic. EYES: Normal reaction of pupils, equal size. NOSE: Clear with pink turbinates. THROAT: No erythema or exudates. NECK: No masses, no JVD. CHEST: No chest wall deformity. LUNGS: Equal air entry with no crackles, wheeze, rhonchi or dullness. CVS: S1 and S2 normal with no audible murmur, regular rhythm. ABDOMEN: No hepatosplenomegaly, normal bowel sounds, no guarding or rigidity. SPINE: No scoliosis or deformity SKIN: No rashes CENTRAL NERVOUS SYSTEM: No focal deficits, tone is normal in all 4 extremities. EXTREMITIES: There is no peripheral edema. No clubbing, no cyanosis. Peripheral pulses are intact. - Labs CBC & Chem 7: 08/18/24 05:23 08/18/24 05:23 Labs: Abnormal Lab Results - Last 24 Hours (Table) 08/17/24 08/17/24 08/17/24 Range/Units 15:26 17:05 20:06 WBC (4.50-10.00) X 10*3/uL RBC 3.93 L (4.30-5.90) m/uL Hgb 11.3 L (13.0-17.5) gm/dL Hct 35.3 L (39.0-53.0) % MCHC (32.0-37.0) g/dL RDW 15.7 H (11.5-15.5) % Lymphocytes # 0.8 L (1.0-4.8) k/uL BUN (9.0-27.0) mg/dL Creatinine (0.6-1.5) mg/dL Est GFR (CKD-EPI) (>=60) BUN/Creatinine Ratio (12.00-20.00) Ratio Glucose (70-110) mg/dL POC Glucose (mg/dL) 164 H 208 H (70-110) mg/dL Alkaline Phosphatase (41-126) U/L Albumin/Globulin Ratio (1.60-3.17) Ratio 08/17/24 08/18/24 08/18/24 Range/Units 23:40 05:23 05:23 WBC 3.78 L (4.50-10.00) X 10*3/uL RBC 3.81 L (4.30-5.90) m/uL Hgb 10.8 L (13.0-17.5) gm/dL Hct 34.4 L (39.0-53.0) % MCHC 31.4 L (32.0-37.0) g/dL RDW 16.2 H (11.5-15.5) % Lymphocytes # 0.70 L (1.0-4.8) k/uL BUN 58.1 H (9.0-27.0) mg/dL Creatinine 2.4 H (0.6-1.5) mg/dL Est GFR (CKD-EPI) 27 L (>=60) BUN/Creatinine Ratio 24.21 H (12.00-20.00) Ratio Glucose 129 H (70-110) mg/dL POC Glucose (mg/dL) 196 H (70-110) mg/dL Alkaline Phosphatase 25 L (41-126) U/L Albumin/Globulin Ratio 1.41 L (1.60-3.17) Ratio // Range/Units 05:57 WBC (4.50-10.00) X 10*3/uL RBC (4.30-5.90) m/uL Hgb (13.0-17.5) gm/dL Hct (39.0-53.0) % MCHC (32.0-37.0) g/dL RDW (11.5-15.5) % Lymphocytes # (1.0-4.8) k/uL BUN (9.0-27.0) mg/dL Creatinine (0.6-1.5) mg/dL Est GFR (CKD-EPI) (>=60) BUN/Creatinine Ratio (12.00-20.00) Ratio Glucose (70-110) mg/dL POC Glucose (mg/dL) 120 H (70-110) mg/dL Alkaline Phosphatase (41-126) U/L Albumin/Globulin Ratio (1.60-3.17) Ratio Assessment and Plan Assessment: Hemoptysis of unclear etiology. No further hemoptysis in the past 24 hours. Plan is for bronchoscopy with BAL today History of chronic obstructive pulmonary disease Former smoker Obstructive sleep apnea maintained on CPAP History of atrial fibrillation anticoagulated with Eliquis Coronary disease with previous coronary bypass surgery History of pacemaker implantation History of congestive heart failure History of hypertension Hyperlipidemia History of anxiety/depression History of seizures Plan: The patient was seen and evaluated Labs and medications reviewed Remains stable and on room air No further hemoptysis Plan is for bronchoscopy with BAL today If no significant findings could be discharged home later today Continue DuoNeb inhalations Continue Symbicort Continue to hold Eliquis This patient was seen independently by the pulmonary nurse practitioner addressing pulmonary issues I have personally seen and examined the patient, performed the documentation and the assessment and plan as written. Number of minutes spent on the visit: 25 Dictation was produced using [employer] dictation software. Please excuse any grammatical, word or spelling errors.
[2024-08-18 12:19] LABS: Glucose,Whole Blood 177 mg/dL (70-110)
[2024-08-18] MEDS: HYDROcodone/APAP 7.5-325MG 1 EACH TAB PO PRN (12:41)
[2024-08-18] MEDS: ASCORBIC ACID 500 MG TAB PO SCH (12:42)
[2024-08-18] MEDS: DAPAGLIFLOZIN PROPANEDIOL 5 MG TABLET PO SCH (12:42)
[2024-08-18] MEDS: CHOLECALCIFEROL 25 MCG (1000 IU) TABLET PO SCH (12:42)
[2024-08-18] MEDS: POTASSIUM CHLORIDE ER 20 MEQ TAB.ER PO SCH (12:43)
[2024-08-18] MEDS: FOLIC ACID 1 MG TAB PO SCH (12:44)
[2024-08-18] MEDS: FOLIC ACID-VIT B COMPLEX-VIT C 1 CAP PO SCH (12:44)
[2024-08-18] MEDS: FENOFIBRATE 160 MG TAB PO SCH (12:44)
[2024-08-18] MEDS: ZINC SULFATE 220 MG CAP PO SCH (12:45)
[2024-08-18] MEDS: AMOXIC-POT CLAV 875-125MG 1 EACH TAB PO SCH (12:45)
[2024-08-18] MEDS: SENNOSIDES 8.6 MG TAB PO SCH (12:45)
[2024-08-18] MEDS: predniSONE 20 MG TAB PO SCH (12:48)
[2024-08-18] MEDS: INSULIN GLARGINE (LANTUS) 100 UNIT/ML SYR SQ SCH (12:55)
[2024-08-18] MEDS ORDERED: DEXTROSE 50% SYRINGE 50 ML IVP PRN ×2 (13:12)
--- NOTE | 2024-08-18 13:15 | CA ---
Transthoracic Echo Report Name: Adonay Vera Age: 79 Gender: M : 1945 Exam Date: 08/18/2024 10:53 Exam Location: [facility] Ht (in): 65 Wt (lb): 200 Ordering Physician: Danielle Gomes Attending/Referring Phys: [id number], Eliseo Rib Chopper Ella Vegas, HOWARD Procedure CPT: Indications: LV function, CHF, CAD Cardiac Hx: CABG, Pacemaker Technical Quality: Good Contrast 1: Total Dose (mL): Contrast 2: Total Dose (mL): MEASUREMENTS (Male / Female) Normal Values 2D ECHO LV Diastolic Diameter PLAX 4.7 cm 4.2 - 5.9 / 3.9 - 5.3 cm LV Systolic Diameter PLAX 3.6 cm IVS Diastolic Thickness 1.4 cm 0.6 - 1.0 / 0.6 - 0.9 cm LVPW Diastolic Thickness 1.6 cm 0.6 - 1.0 / 0.6 - 0.9 cm LV Relative Wall Thickness 0.6 RV Internal Dim ED PLAX 3.5 cm LA Systolic Diameter LX 4.6 cm 3.0 - 4.0 / 2.7 - 3.8 cm LV Diastolic Volume MOD 4C 95.2 cm??? LV Systolic Volume MOD 4C 48.8 cm??? LV Ejection Fraction MOD 4C 48.8 % LV Cardiac Index MOD 4C 1409.1 cm???/min???m??? LV Diastolic Length 4C 8.4 cm LV Systolic Length 4C 7.7 cm LV Diastolic Volume MOD 2C 93.9 cm??? LV Systolic Volume MOD 2C 46.4 cm??? LV Ejection Fraction MOD 2C 50.5 % LV Cardiac Index MOD 2C 1441.2 cm???/min???m??? LV Diastolic Length 2C 8.9 cm LV Systolic Length 2C 7.7 cm LA Volume 98.4 cm??? 18 - 58 / 22 - 52 cm??? LA Volume Index 47.5 cm???/m??? 16 - 28 cm???/m??? M-MODE Aortic Root Diameter MM 4.1 cm DOPPLER AV Peak Velocity 108.5 cm/s AV Peak Gradient 4.7 mmHg AV Mean Velocity 80.6 cm/s AV Mean Gradient 2.9 mmHg AV Velocity Time Integral 29.4 cm MV Area PHT 2.9 cm??? Mitral E Point Velocity 179.5 cm/s Mitral A Point Velocity 63.1 cm/s Mitral E to A Ratio 2.8 MV Deceleration Time 257.4 ms FINDINGS Left Ventricle Left ventricular ejection fraction is estimated at 55-60 %. Left ventricular cavity size normal. Moderate concentric left ventricular hypertrophy. Normal left ventricular wall motion. Right Ventricle Mild right ventricular dilatation. Unable to estimate the right ventricular systolic pressure. Right Atrium Right atrium not well visualized. Left Atrium Mildly increased left atrial diameter. Severely increased left atrial volume. Mildly increased left atrial area. Mitral Valve Mitral valve thickened. Mild mitral annular calcification. Trace to mild mitral regurgitation. Aortic Valve Trileaflet aortic valve. Diffuse thickening (sclerosis) of the aortic valve cusps without reduced excursion. Tricuspid Valve Structurally normal tricuspid valve. No tricuspid stenosis, regurgitation or prolapse. Pulmonic Valve Structurally normal pulmonic valve. Trace pulmonic regurgitation. Pericardium No pericardial effusion. Aorta Mild aortic dilatation at the level of the sinuses of valsalva 41 mm CONCLUSIONS Normal LV function dilated left atrium Previewed by: Dr. Kt Henry MD (Electronically Signed) Final Date: 18 August 2024 13:14
[2024-08-18 14:14] LABS: Glucose,Whole Blood 231 mg/dL (70-110)
[2024-08-18] MEDS: INSULIN LISPRO (HumaLOG) 100 UNIT/ML 10 mL VL SQ SCH (14:51)
[2024-08-18 17:39] VITALS: TEMP 97.5
[2024-08-18 17:40] VITALS: PULSE 70
[2024-08-18 17:42] VITALS: BP 155/67; RESP 18
[2024-08-18 19:19] LABS: Appearance,BF Blood Tinged (Clear); RBC, Body Fluid 20700 /UL (0-2000)
--- NOTE | 2024-08-18 22:32 | P.DS ---
Providers Date of admission: 08/17/24 12:46 Attending physician: Zechariah Aguilar MD Consults: 08/17/24 12:41 Consult Physician Urgent Consulting Provider: Jose Caraballo Consult Reason/Comments: hemoptysis Do you want consulting provider notified?: Yes Consult Physician Urgent Consulting Provider: [facility] Consult Reason/Comments: possible new onset chf Do you want consulting provider notified?: Yes Primary care physician: Physician Nonstaff Hospital Course: Diagnoses: Hemoptysis, thought secondary to bronchitis s/p bronchoscopy. Biopsy pending and patient said he is going to follow-up with Dr. Wellington as an outpatient Acute blood loss anemia Lower back pain radiating to the left leg Hypertension Hyperlipidemia Coronary artery disease Obesity with BMI of 33. Peripheral artery disease Kidney stone Hospital course: This is a pleasant 79 years old male with past medical history of multiple medical problems as below. Patient was sent from [facility] at the time for hemoptysis. Patient information was obtained with the help of the at bedside. He has been coughing up blood last Wednesday couple times and then earlier this morning so he decided to come to the hospital. 2 weeks ago also he had similar episode of hemoptysis. Patient evaluated by plastic mixer Dr. Caraballo he underwent bronchoscopy. Bronchitis is suspected, biopsy were taken Today he was feeling much better. He was cleared for discharge by pulmonary team, this was confirmed by the bedside nurse. Patient was placed on Augmentin x 7 days and prednisone burst taper by pulmonary team. Patient was feeling better, wheezing better no chest pain no other new complaint. He was on room air. No respiratory distress and talking freely. was at bedside. I have lengthy discussion with the and patient about management. Both pulmonary and cardiology team recommended to hold Eliquis. I informed the patient and to hold Eliquis for 2 to 3 days and talk to his PCP and calculating machine mechanic. told me she can talk to his PCP on Wednesday and his calculating machine mechanic Dr. Correa this coming Wednesday. Also advised them if patient wants resumed Eliquis and he develop any further bleeding like hemoptysis versus other to hold it until the doctor right away. The patient and understand that he will be at risk of stroke while he is off Eliquis, I advised him once he develop any neurological symptoms not to wait and to call 911 right away and they verbalized understanding and acceptance Also patient is diabetic and taking Lantus 40 units daily. Patient will be discharged on steroids as well expect increase his sugar, understands that she is going to check his sugar regularly 4 times a day during this 2 weeks of prednisone taper, she has glucometer at home. Recommend to take glucose check 4 times a day before meals and at bedtime. Verbal and written instruction provided for them in details. Prescription for short acting insulin provided upon discharge Other than that patient feels fine and he wants to go home Patient was cleared for discharge by both cardiology and pulmonary service. Problems and management plan were discussed with the patient and he verbalized understanding and acceptance Patient was found stable and can be discharged home in guarded prognosis however he needs follow-up as an outpatient. Patient was instructed to follow up with PCP within one week and patient agrees Patient was directed to follow-up with Dr. Caraballo in 7 to 10 days and with his calculating machine mechanic within 1 week and patient and agreeable Physical exam Gen: patient is a AAOx3, no distress CVS: S1-S2, RRR, no murmur -Lungs: B/L CTA, n mild scattered wheezing, which is improving Abdomen: soft, no distention, no tenderness, positive bowel sounds Extremity: no leg edema or induration Time spent more than 35 minutes Patient Condition at Discharge: Stable Plan - Discharge Summary Discharge Rx Participant: No New Discharge Prescriptions: New Amoxic-Pot Clav 875-125Mg [Augmentin 875-125] 1 each PO Q12HR 7 Days #13 tab predniSONE 10 mg PO DIRECTED #40 tab Insulin Lispro [Admelog] 5 units SQ TID 30 Days #5 each Continue Vitamin B Complex 1 cap PO DAILY Folate 1,333 Mcg Dfe 1 tab PO DAILY buPROPion XL [Wellbutrin XL] 300 mg PO DAILY Zinc Gluconate [Zinc] 50 mg PO DAILY Sennosides [Senokot] 8.6 mg PO DAILY HYDROcodone/APAP 7.5-325MG [[place] 7.5-325] 1 tab PO BID PRN PRN Reason: Pain methocarbamoL [Robaxin] 500 mg PO BID carvediloL [Coreg] 25 mg PO BID Isosorbide Mononitrate ER [Imdur] 30 mg PO TID Fenofibrate [Lofibra] 160 mg PO DAILY Spironolactone [Aldactone] 12.5 mg PO DAILY Empagliflozin [Jardiance] 10 mg PO DAILY hydrALAZINE HCL [Apresoline] 100 mg PO TID Gabapentin [Neurontin] 300 mg PO BID Tamsulosin [Flomax] 0.8 mg PO HS DULoxetine HCL [Cymbalta] 20 mg PO BID Potassium Chloride ER [K-Dur 20] 20 meq PO DAILY Furosemide [Lasix] 80 mg PO DAILY Ascorbic Acid [Vitamin C] 500 mg PO DAILY Cholecalciferol [Vitamin D3 (25 Mcg = 1000 Iu)] 25 mcg PO DAILY Zolpidem [Ambien] 10 mg PO HS HYDROcodone/APAP 7.5-325MG [[place] 7.5-325] 1 tab PO HS amLODIPine [Norvasc] 10 mg PO HS Atorvastatin [Lipitor] 80 mg PO HS Divalproex [Depakote] 250 mg PO BID Insulin Glargine,Hum.rec.anlog [Basaglar Kwikpen U-100] 40 unit SQ DAILY Evolocumab [Repatha Sureclick] 140 mg SQ Q14D Fluticasone/Umeclidin/Vilanter [Trelegy Ellipta 100-62.5-25] 1 puff INHALATION RT-DAILY QUEtiapine [SEROquel] 25 mg PO HS Furosemide [Lasix] 20 mg PO DAILY PRN PRN Reason: Edema Changed Albuterol Sulfate [Albuterol Sulfate Hfa] 2 puff INHALATION Q6H PRN #1 each PRN Reason: Shortness Of Breath No Action Apixaban [Eliquis] 5 mg PO BID Discharge Medication List Apixaban [Eliquis] 5 mg PO BID 08/17/24 [History] Ascorbic Acid [Vitamin C] 500 mg PO DAILY 08/17/24 [History] Atorvastatin [Lipitor] 80 mg PO HS 08/17/24 [History] Cholecalciferol [Vitamin D3 (25 Mcg = 1000 Iu)] 25 mcg PO DAILY 08/17/24 [History] DULoxetine HCL [Cymbalta] 20 mg PO BID 08/17/24 [History] Divalproex [Depakote] 250 mg PO BID 08/17/24 [History] Empagliflozin [Jardiance] 10 mg PO DAILY 08/17/24 [History] Evolocumab [Repatha Sureclick] 140 mg SQ Q14D 08/17/24 [History] Fenofibrate [Lofibra] 160 mg PO DAILY 08/17/24 [History] Fluticasone/Umeclidin/Vilanter [Trelegy Ellipta 100-62.5-25] 1 puff INHALATION RT-DAILY 08/17/24 [History] Folate 1,333 Mcg Dfe 1 tab PO DAILY 08/17/24 [History] Furosemide [Lasix] 20 mg PO DAILY PRN 08/17/24 [History] Furosemide [Lasix] 80 mg PO DAILY 08/17/24 [History] Gabapentin [Neurontin] 300 mg PO BID 08/17/24 [History] HYDROcodone/APAP 7.5-325MG [[place] 7.5-325] 1 tab PO BID PRN 08/17/24 [History] HYDROcodone/APAP 7.5-325MG [[place] 7.5-325] 1 tab PO HS 08/17/24 [History] Insulin Glargine,Hum.rec.anlog [Basaglar Kwikpen U-100] 40 unit SQ DAILY 08/17/24 [History] Isosorbide Mononitrate ER [Imdur] 30 mg PO TID 08/17/24 [History] Potassium Chloride ER [K-Dur 20] 20 meq PO DAILY 08/17/24 [History] QUEtiapine [SEROquel] 25 mg PO HS 08/17/24 [History] Sennosides [Senokot] 8.6 mg PO DAILY 08/17/24 [History] Spironolactone [Aldactone] 12.5 mg PO DAILY 08/17/24 [History] Tamsulosin [Flomax] 0.8 mg PO HS 08/17/24 [History] Vitamin B Complex 1 cap PO DAILY 08/17/24 [History] Zinc Gluconate [Zinc] 50 mg PO DAILY 08/17/24 [History] Zolpidem [Ambien] 10 mg PO HS 08/17/24 [History] amLODIPine [Norvasc] 10 mg PO HS 08/17/24 [History] buPROPion XL [Wellbutrin XL] 300 mg PO DAILY 08/17/24 [History] carvediloL [Coreg] 25 mg PO BID 08/17/24 [History] hydrALAZINE HCL [Apresoline] 100 mg PO TID 08/17/24 [History] methocarbamoL [Robaxin] 500 mg PO BID 08/17/24 [History] Albuterol Sulfate [Albuterol Sulfate Hfa] 2 puff INHALATION Q6H PRN #1 each 08/18/24 [Rx] Amoxic-Pot Clav 875-125Mg [Augmentin 875-125] 1 each PO Q12HR 7 Days #13 tab 08/18/24 [Rx] Insulin Lispro [Admelog] 5 units SQ TID 30 Days #5 each 08/18/24 [Rx] predniSONE 10 mg PO DIRECTED #40 tab 08/18/24 [Rx] Follow up Appointment(s)/Referral(s): Jose Caraballo DO [Doctor of Osteopathic Medicine] - 1 Week Nonstaff,Physician [Primary Care Provider] - 1-2 days Kt Henry MD [STAFF PHYSICIAN] - 2 Weeks Patient Instructions/Handouts: *Surgery [facility] - Bronchoscopy Discharge Instructions, Bronchiolitis (DC), Coughing Up Blood (Hemoptysis) (ED) Activity/Diet/Wound Care/Special Instructions: Heart healthy diet Activity is restricted till you see We recommend to hold Eliquis for 2-3 days and then talk to your doctors (primary care doctor and calculating machine mechanic) about when to resume it We recommend to check your glucose 4 times a day and before each meal, keep the results in a log book and bring it your doctor on your appointment date If your glucose less than 70 or more than 400 then come to emergency room Discharge Disposition: HOME SELF-CARE
[2024-08-19] MEDS ORDERED: INSULIN GLARGINE (LANTUS) 100 UNIT/ML SYR SQ SCH (07:00)
[2024-08-19] MEDS ORDERED: predniSONE 20 MG TAB PO SCH (09:00)
[2024-08-21 12:01] LABS: Nucleated Cells, Body Fluid 240 /UL
--- NOTE | 2024-08-21 14:20 | PCN ---
PROCEDURE NOTE PROCEDURES: Bronchoscopy, airway examination, therapeutic lavage, BAL right middle lobe. PREOPERATIVE DIAGNOSES: Hemoptysis, bronchitis. POSTOPERATIVE DIAGNOSES: Hemoptysis, bronchitis, and tracheobronchomalacia. ASSOCIATE [employer]: Dr. Caraballo. FIRST CONTRACTING OFFICER: Dr. Kaela Washington. The patient's procedure took place in room #1 [facility]. ANESTHESIA PROVIDED: Monitored anesthesia care. DESCRIPTION OF PROCEDURE: After the patient was adequately sedated and being fully monitored, the bronchoscope was inserted through the right nostril. It passed through the right nasopharynx into the oropharynx. The hypopharynx was identified. The hypopharyngeal structures, including the anterior commissure, true cords, false cords, arytenoids, piriform sinuses, right and left, vallecula, epiglottis, all appeared relatively normal. There were some secretions noted in the hypopharynx. They were suctioned without difficulty. The glottic opening was topicalized with lidocaine. The bronchoscope was pushed through the glottic opening into the trachea. There was a blood clot sitting in the proximal trachea. It was suctioned. The trachea otherwise appeared normal say for tracheomalacia. It was moderate in severity. Tracheal ilia was sharp. Right and left mainstem were topicalized. Right upper lobe and its 3 segments, the right middle lobe and its 2 segments, right lower lobe and its 5 segments, left upper lobe proper and its 2 segments, lingula and its 2 segments, and left lower lobe and its 4 segments all had similar findings of diffuse airways, erythema, and hyperemia. There was diffuse bronchitis. There was mucosal friability. There was minimal bleeding. There was no dominant mass or tumor. Secretions were suctioned. The bronchoscope was wedged into the right middle lobe. We did a formal BAL. Thirty mL of fluid was recovered. It was blood tinged. It was sent to the laboratory for analysis. There was no immediate complication. The bronchoscope was withdrawn and the patient will be recovered. MMODL / IJN: [id number] /
[2024-08-24] MEDS ORDERED: NON FORMULARY DRUG (Evolocumab [Repatha Sureclick] 140 MG/ML Each) SQ SCH (09:00)
== END 2024-08-18 16:55 | disposition home or self-care (01) ==
LOC: EC 10:06 → 6NMEDSUR 12:46
PROVIDERS: ADMIT Internal Medicine; ATTEND Internal Medicine
DX: R04.2 Hemoptysis (principal); J44.89 Other specified chronic obstructive pulmonary disease; J39.8 Other specified diseases of upper respiratory tract; D62 Acute posthemorrhagic anemia; M54.50 Low back pain, unspecified; G47.33 Obstructive sleep apnea (adult) (pediatric); I25.10 Atherosclerotic heart disease of native coronary artery without angina pectoris; E78.5 Hyperlipidemia, unspecified; I48.0 Paroxysmal atrial fibrillation; I13.0 Hypertensive heart and chronic kidney disease with heart failure and stage 1 through stage 4 chronic kidney disease, or unspecified chronic kidney disease; I50.9 Heart failure, unspecified; N18.9 Chronic kidney disease, unspecified; E11.22 Type 2 diabetes mellitus with diabetic chronic kidney disease; F32.A Depression, unspecified; F41.9 Anxiety disorder, unspecified; E11.51 Type 2 diabetes mellitus with diabetic peripheral angiopathy without gangrene; N20.0 Calculus of kidney; E66.9 Obesity, unspecified; Z68.33 Body mass index [BMI] 33.0-33.9, adult; Z87.891 Personal history of nicotine dependence; Z95.0 Presence of cardiac pacemaker; Z95.1 Presence of aortocoronary bypass graft; Z95.2 Presence of prosthetic heart valve; Z79.01 Long term (current) use of anticoagulants; Z79.4 Long term (current) use of insulin; Z79.84 Long term (current) use of oral hypoglycemic drugs; Z79.899 Other long term (current) drug therapy
CPT/HCPCS: 96374; 99284; 94640 ×4; 93306; 93005; 97165; 80053; 89050; 85025 ×2; 87070; 87205; 87116; 87102; 87206; 72100; 31624; G0378 ×2; J3490; J7512; J2003; 88108; 88305